=== PATIENT | male | born 1935 | race Two or more races ===

== ENCOUNTER 2016-07-16 17:06 | Inpatient (IN) | payer OTHER, MEDICAID ==
[~2016-07-16] VITALS: Ht 167.6 cm; Wt 81.2 kg
[2016-07-16 17:41] LABS: BASOPHILS % (AUTO) 0.5 % (0.0-2.0); DIFF TOTAL % 100 %; EOSINOPHILS # (AUTO) 0.2 /CMM (0.0-0.7); EOSINOPHILS % (AUTO) 2.3 % (0.0-6.0); HEMATOCRIT 37 % (39-51); HEMOGLOBIN 12.4 g/dL (13.5-17.5); LYMPHOCYTES # (AUTO) 1.4 /CMM (0.8-4.8); LYMPHOCYTES % (AUTO) 19.1 % (20.0-44.0); MEAN CORPUSCULAR HEMOGLOBIN 29 PG (26.0-33.0); MEAN CORPUSCULAR HGB CONC 34 g/dl (31.0-36.0); MEAN CORPUSCULAR VOLUME 87 fL (80-96); MONOCYTES # (AUTO) 0.7 /CMM (0.1-1.30); NEUTROPHILS # (AUTO) 4.9 /CMM (1.8-8.9); NEUTROPHILS % (AUTO) 68.1 % (43.0-81.0); PLATELET COUNT (AUTO) 256 /CMM (150-450); RED BLOOD CELL COUNT(AUTO) 4.25 MIL/uL (4.5-6.0); WHITE BLOOD COUNT (AUTO) 7.2 K/uL (4.3-11.0)
[2016-07-16 17:53] LABS: ANION GAP 12 (5-14); CALCIUM, SERUM 9.1 mg/dL (8.5-10.1); CARBON DIOXIDE 26 mmol/L (21-32); CHLORIDE 105 mmol/L (98-107); CREATININE 1.3 mg/dL (0.6-1.3); GLUCOSE 122 mg/dL (74-106); POTASSIUM 3.7 mmol/L (3.5-5.1); SODIUM SERUM 140 mmol/L (136-145); UREA NITROGEN, BLOOD 25 mg/dL (7-18)
[2016-07-16] MEDS ORDERED: LORAZEPAM INJ 2 MG/ML VIAL ONE ×2 (17:53→18:17)
[2016-07-16 18:00] LABS: TROPONIN I < 0.017 ng/mL (0.00-0.056)
[2016-07-16 18:03] LABS: THYROID STIMULATING HORMONE 1.571 uIU/mL (0.358-3.74)
[2016-07-16] MEDS ORDERED: LORAZEPAM INJ 2 MG/ML VIAL IV ONE ×2 (18:30)
[2016-07-16] MEDS ORDERED: IV NS 0.9% 1,000 ML IV ONE (20:00)
[2016-07-16] MEDS ORDERED: PIPERACILLIN /TAZOBACTAM 3.375 G in IV D5W 50 ML IV ONE (20:00)
[2016-07-16] MEDS ORDERED: IV SET PRIMARY 1 EA INFUS.SET MC ONE ×2 (20:30→20:35)
[2016-07-16] MEDS ORDERED: IV NS 0.9% 1,000 ML ONE (20:35)
[2016-07-16 22:00] VITALS: BP 148/77
[2016-07-16] MEDS ORDERED: LORAZEPAM INJ 2 MG/ML VIAL IV PRN (22:30)
[2016-07-16] MEDS ORDERED: ACETAMINOPHEN 325 MG TABLET PO PRN (22:30)
[2016-07-17 06:32] LABS: BASOPHILS % (AUTO) 0.4 % (0.0-2.0); DIFF TOTAL % 100 %; EOSINOPHILS # (AUTO) 0.2 /CMM (0.0-0.7); EOSINOPHILS % (AUTO) 2.7 % (0.0-6.0); HEMATOCRIT 37 % (39-51); HEMOGLOBIN 12.2 g/dL (13.5-17.5); LYMPHOCYTES # (AUTO) 1.9 /CMM (0.8-4.8); LYMPHOCYTES % (AUTO) 24.4 % (20.0-44.0); MEAN CORPUSCULAR HEMOGLOBIN 29 PG (26.0-33.0); MEAN CORPUSCULAR HGB CONC 33 g/dl (31.0-36.0); MEAN CORPUSCULAR VOLUME 88 fL (80-96); MONOCYTES # (AUTO) 0.8 /CMM (0.1-1.30); MONOCYTES % (AUTO) 10.1 % (2.0-12.0); NEUTROPHILS # (AUTO) 4.8 /CMM (1.8-8.9); NEUTROPHILS % (AUTO) 62.4 % (43.0-81.0); PLATELET COUNT (AUTO) 224 /CMM (150-450); RED BLOOD CELL COUNT(AUTO) 4.16 MIL/uL (4.5-6.0); WHITE BLOOD COUNT (AUTO) 7.7 K/uL (4.3-11.0)
[2016-07-17 07:01] LABS: CALCIUM, SERUM 8.5 mg/dL (8.5-10.1); CREATININE 1.2 mg/dL (0.6-1.3); POTASSIUM 3.8 mmol/L (3.5-5.1)
[2016-07-17 08:00] VITALS: BP 116/69
[2016-07-17] MEDS: ENOXAPARIN SODIUM 40 MG/0.4 ML DISP.SYRIN SQ SCH (08:13)
[2016-07-17] MEDS ORDERED: IV NS 0.9% 250 ML IV ONE (08:48)
[2016-07-17] MEDS ORDERED: IV SET PRIMARY PUMP SET 1 EA INFUS.SET MC ONE (08:49)
[2016-07-17] MEDS: LEVOFLOXACIN 750 MG /D5W 150ML 750 MG in PREMIX 1 EA IV SCH (08:57)
[2016-07-17] MEDS ORDERED: LEVOFLOXACIN 750 MG /D5W 150ML 750 MG in PREMIX 1 EA IV SCH (09:00)
[2016-07-17] MEDS ORDERED: ATEN25TA PO (10:54)
[2016-07-17] MEDS ORDERED: ATOR20TA PO (10:54)
[2016-07-17] MEDS ORDERED: DONE5TAB34 PO (10:54)
[2016-07-17] MEDS ORDERED: TRAZ-144 PO (10:54)
[2016-07-17] MEDS ORDERED: Z GUARD REMEDY 2 OZ OINT TP PRN (14:00)
[2016-07-17 16:00] VITALS: BP 132/68
[2016-07-17] MEDS: Z GUARD REMEDY 2 OZ OINT TP SCH (16:01)
[2016-07-17] MEDS ORDERED: QUETIAPINE FUMARATE 25 MG TABLET PO SCH (17:00)
[2016-07-17] MEDS: OLANZAPINE 2.5 MG TABLET PO SCH (18:48)
[2016-07-17 20:00] VITALS: BP 132/68
[2016-07-17] MEDS: TRAZODONE 50 MG TABLET PO SCH (21:58)
[2016-07-17] MEDS: ATORVASTATIN 10 MG TABLET PO SCH (22:00)
[2016-07-18] MEDS: OLANZAPINE 2.5 MG TABLET PO SCH ×2 (08:28→16:17)
[2016-07-18] MEDS: DONEPEZIL 5 MG TABLET PO SCH (08:28)
[2016-07-18] MEDS: ATENOLOL 25 MG TABLET PO SCH (08:28)
[2016-07-18] MEDS: ENOXAPARIN SODIUM 40 MG/0.4 ML DISP.SYRIN SQ SCH (08:31)
[2016-07-18] MEDS: Z GUARD REMEDY 2 OZ OINT TP SCH (08:32)
[2016-07-18 08:54] VITALS: BP 112/70
[2016-07-18] MEDS: NEOMY SULF/BACITRAC ZN/POLY 15 GM TUBE TP SCH (12:15)
[2016-07-18 17:37] VITALS: BP 120/80
[2016-07-18 20:00] VITALS: BP 107/60
[2016-07-18] MEDS: TRAZODONE 50 MG TABLET PO SCH (21:22)
[2016-07-18] MEDS: ATORVASTATIN 10 MG TABLET PO SCH (21:22)
[2016-07-19 08:00] VITALS: BP 100/63
[2016-07-19 08:04] LABS: BASOPHILS % (AUTO) 0.6 % (0.0-2.0); DIFF TOTAL % 100 %; EOSINOPHILS # (AUTO) 0.1 /CMM (0.0-0.7); EOSINOPHILS % (AUTO) 1.1 % (0.0-6.0); HEMATOCRIT 38 % (39-51); HEMOGLOBIN 12.9 g/dL (13.5-17.5); LYMPHOCYTES # (AUTO) 1.4 /CMM (0.8-4.8); LYMPHOCYTES % (AUTO) 16.8 % (20.0-44.0); MEAN CORPUSCULAR HEMOGLOBIN 30 PG (26.0-33.0); MEAN CORPUSCULAR HGB CONC 34 g/dl (31.0-36.0); MEAN CORPUSCULAR VOLUME 87 fL (80-96); MONOCYTES % (AUTO) 12.3 % (2.0-12.0); NEUTROPHILS # (AUTO) 5.8 /CMM (1.8-8.9); NEUTROPHILS % (AUTO) 69.2 % (43.0-81.0); PLATELET COUNT (AUTO) 256 /CMM (150-450); RED BLOOD CELL COUNT(AUTO) 4.36 MIL/uL (4.5-6.0); WHITE BLOOD COUNT (AUTO) 8.4 K/uL (4.3-11.0)
[2016-07-19] MEDS: LEVOFLOXACIN 750 MG /D5W 150ML 750 MG in PREMIX 1 EA IV SCH (08:05)
[2016-07-19] MEDS: DONEPEZIL 5 MG TABLET PO SCH (08:11)
[2016-07-19] MEDS: OLANZAPINE 2.5 MG TABLET PO SCH (08:11)
[2016-07-19] MEDS: NEOMY SULF/BACITRAC ZN/POLY 15 GM TUBE TP SCH (08:11)
[2016-07-19 08:21] VITALS: BP 100/63
[2016-07-19] MEDS: ATENOLOL 25 MG TABLET PO SCH (08:21)
[2016-07-19] MEDS: ENOXAPARIN SODIUM 40 MG/0.4 ML DISP.SYRIN SQ SCH (08:23)
[2016-07-19] MEDS: Z GUARD REMEDY 2 OZ OINT TP SCH (08:23)
[2016-07-19 10:30] LABS: CREATININE 1.7 mg/dL (0.6-1.3); POTASSIUM 3.8 mmol/L (3.5-5.1)
== END 2016-07-19 15:40 | disposition home or self-care (01) | DRG 193 ==
LOC: ER 17:08 → EDBD 20:40 → MED 20:40
PROVIDERS: ADMIT Legal Medicine; ATTEND Legal Medicine
DX: J15.9 Unspecified bacterial pneumonia (principal); G93.40 Encephalopathy, unspecified; F03.90 Unspecified dementia, unspecified severity, without behavioral disturbance, psychotic disturbance, mood disturbance, and anxiety; I10 Essential (primary) hypertension; I25.10 Atherosclerotic heart disease of native coronary artery without angina pectoris; E78.5 Hyperlipidemia, unspecified; Z91.83 Wandering in diseases classified elsewhere
CPT/HCPCS: 36415; 70450-TC; 71010-TC; 80048-TC; 82140-TC; 83605-TC; 84443-TC; 84484-TC; 85025-TC; 87040-TC; 87081-TC; 94799-TC; 97001-TC; A4216; A4606; A6402; G0480; J1650; J1956; J2060; J2543; J7030; J7050; J7060; Z7610